=== PATIENT | male | born 1955 | race Caucasian/White ===

== ENCOUNTER 2022-06-18 17:00 | Inpatient (IN) | payer OTHER ==
[~2022-06-18] VITALS: Ht 180.3 cm; Wt 106.1 kg
[2022-06-18] MEDS ORDERED: IV NS 0.9% 1,000 ML BAG IV ONE (17:30)
--- NOTE | 2022-06-18 17:30 | NUR ---
PT BIBRA FROM HOME TO ER BD 06, PER EMS REPORT PT WAS ACTING NOT HIMSELF UPON WAKING UP FROM A NAP AND UNABLE TO STAND UP. UPON EMS ARRIVAL PATIENTS B/P WAS LOW AND HIS HEART RATE WAS ATRIAL FIBRILATION RATE 170'S PT GOWNED AND PLACED ON MONITOR, VERBALLY RESPONSIVE. AFIB IN THE 150'S. DR GLASS AT BEDSIDE FOR EVAL.
[2022-06-18 18:16] LABS: BASOPHILS % (AUTO) 0.1 % (0.0-2.0); HEMATOCRIT 42 % (39-51); LYMPHOCYTES # (AUTO) 0.2 K/uL (0.8-4.8); LYMPHOCYTES % (AUTO) 2.2 % (20.0-44.0); MEAN CORPUSCULAR HGB CONC 33 g/dl (31.0-36.0); MEAN CORPUSCULAR VOLUME 91 fL (80-96); MONOCYTES # (AUTO) 0.2 K/uL (0.1-1.30); MONOCYTES % (AUTO) 1.6 % (2.0-12.0); NEUTROPHILS # (AUTO) 9.5 K/uL (1.8-8.9); NEUTROPHILS % (AUTO) 96.1 % (43.0-81.0); PLATELET COUNT (AUTO) 100 K/uL (150-450); RED BLOOD CELL COUNT(AUTO) 4.67 MIL/uL (4.5-6.0); WHITE BLOOD COUNT (AUTO) 9.9 K/uL (4.3-11.0)
--- NOTE | 2022-06-18 18:23 | NUR ---
COVID SWAB TAKEN
[2022-06-18 18:29] LABS: CALCIUM, SERUM 8.5 mg/dL (8.5-10.1); CARBON DIOXIDE 23 mmol/L (21-32); CHLORIDE 102 mmol/L (98-107); CREATININE 2.5 mg/dL (0.6-1.3); GLUCOSE 104 mg/dL (74-106); POTASSIUM 3.9 mmol/L (3.5-5.1); SODIUM SERUM 139 mmol/L (136-145); UREA NITROGEN, BLOOD 28 mg/dL (7-18)
[2022-06-18] MEDS ORDERED: DILTIAZEM HCL 25 MG IV IVP ONE (18:30)
[2022-06-18] MEDS ORDERED: DILTIAZEM HCL IV 125 MG in IV D5W 100 ML IV ONE (18:30)
[2022-06-18] MEDS ORDERED: DILTIAZEM HCL 25 MG IV ONE (18:36)
--- NOTE | 2022-06-18 19:16 | NUR ---
HEART RATE 137, B/P 110/49. CARDIZEM DRIP TITRATED TO 10MG/HR WILL CONTINUE TO MONITOR.
--- NOTE | 2022-06-18 19:23 | NUR ---
PT FOUND HEART RATE 183,CARDIZEM DRIP TITRATED TO 15MG/HR WILL CONTINUE TO MONITOR.PT DENYING ANY CHEST PAIN AT THIS TIME.
[2022-06-18 19:53] LABS: BAND % (MANUAL) 15 % (0.0-5.0); LYMPHOCYTES % (MANUAL) 4 % (16-48); MONOCYTES % (MANUAL) 3 % (0-11.0); NEUTROPHILS % (MANUAL) 78 (42-76)
[2022-06-18] MEDS ORDERED: AMIODARONE 150 MG/3 ML VIAL IV ONE ×3 (20:00→20:16)
[2022-06-18] MEDS ORDERED: AMIODARONE 450 MG in IV D5W 241 ML IV PRN (20:00)
--- NOTE | 2022-06-18 20:07 | NUR ---
CALLED [facility] [place] AWAITING MD CALL BACK
--- NOTE | 2022-06-18 20:22 | NUR ---
zachary urrutia dc'ed per md barroso orders and switched to amiodarone
--- NOTE | 2022-06-18 20:30 | NUR ---
1 liter normal saline initiated at lh 20g per md barroso order for bp management. end time 2129.
[2022-06-18 20:31] LABS: MAGNESIUM 1.9 mg/dL (1.8-2.4)
--- NOTE | 2022-06-18 20:38 | NUR ---
amiodarone drip initiated at 1mg/min per protocol
[2022-06-18 20:42] LABS: PHOSPHORUS 0.4 mg/dL (2.5-4.9)
[2022-06-18] MEDS ORDERED: ENOXAPARIN SODIUM 60 MG/0.6 ML DISP.SYRIN SQ ONE ×2 (21:00→21:48)
[2022-06-18] MEDS ORDERED: MAGNESIUM HYDROXIDE 30 ML UDC PO PRN (21:30)
[2022-06-18] MEDS ORDERED: MAG HYDROX/AL HYDROX/SIMETH 30 ML UDC PO PRN (21:30)
[2022-06-18] MEDS ORDERED: IV NS 0.9% 1,000 ML IV PRN (21:30)
[2022-06-18] MEDS ORDERED: ONDANSETRON HCL/PF 4 MG/2 ML VIAL IVP PRN (21:30)
[2022-06-18] MEDS ORDERED: Z GUARD REMEDY 4 OZ OINT TP PRN (21:30)
[2022-06-18] MEDS ORDERED: ZOLPIDEM TARTRATE 5 MG TABLET PO PRN (21:30)
[2022-06-18] MEDS ORDERED: Magnesium 1GM/D5W 100ML PREMIX 200 ML IV ONE (21:41)
[2022-06-18] MEDS: Magnesium 1GM/D5W 100ML PREMIX 100 ML IV SCH ×2 (21:47→22:45)
[2022-06-18] MEDS ORDERED: ENOXAPARIN SODIUM 80 MG/0.8 ML DISP.SYRIN SQ ONE (21:50)
[2022-06-18] MEDS ORDERED: ACETAMINOPHEN 325 MG TABLET ONE (23:49)
[2022-06-18] MEDS: ACETAMINOPHEN 325 MG TABLET PO PRN (23:57)
--- NOTE | 2022-06-19 02:13 | NUR ---
report given to RR
--- NOTE | 2022-06-19 02:38 | NUR ---
amioadrone drip titrated to 0.5mg/min per protocol.
[2022-06-19] MEDS ORDERED: AMIODARONE 450 MG in IV D5W 241 ML IV PRN (03:00)
[2022-06-19] MEDS ORDERED: LISI40TA13 PO (03:01)
--- NOTE | 2022-06-19 03:01 | NUR ---
pt transported to room 255 on cardiac exercise physiologist per acls. amiodarone infusing at 0.5mg/min.
[2022-06-19 03:45] VITALS: BP 80/49
--- NOTE | 2022-06-19 03:50 | NUR ---
ICU ADMISSION NOTES Received patient from ER via [facility], accompanied by RN, ADELINA and his son. Alert and oriented x4. verbally responsive. On 02 3lpm via nasal cannula, saturating well. afebrile. IV access at Left hand and left AC, infusing at 75ml/h. tele monitor reads sinus rhythm at 80s. Initial and physical assessment done. skin is intact. Kept comfortable. Oriented to room set-up. safety measures initiated. Will continue to monitor.
[2022-06-19 04:00] VITALS: BP 90/49
[2022-06-19] MEDS ORDERED: IV NS 0.9% 1,000 ML IV ONE (04:00)
--- NOTE | 2022-06-19 04:20 | NUR ---
RN Notes - Patient's BP drops with reading of 89/49. Informed Dr. Olmstead. Received phone order. Given IV bolus of NS and increased current IV NS to 125ml/h. Tolerated proc well. Kept comfortable. Will continue to monitor.
[2022-06-19 04:30] VITALS: BP 104/53
[2022-06-19] MEDS: IV NS 0.9% 1,000 ML IV PRN ×2 (05:05→12:52)
[2022-06-19 05:26] LABS: BASOPHILS % (AUTO) 0.1 % (0.0-2.0); EOSINOPHILS % (AUTO) 0.1 % (0.0-6.0); HEMATOCRIT 36 % (39-51); HEMOGLOBIN 12.1 g/dL (13.5-17.5); LYMPHOCYTES # (AUTO) 0.6 K/uL (0.8-4.8); LYMPHOCYTES % (AUTO) 2.2 % (20.0-44.0); MEAN CORPUSCULAR HGB CONC 33 g/dl (31.0-36.0); MEAN CORPUSCULAR VOLUME 91 fL (80-96); MONOCYTES # (AUTO) 1.3 K/uL (0.1-1.30); MONOCYTES % (AUTO) 4.3 % (2.0-12.0); NEUTROPHILS # (AUTO) 27.4 K/uL (1.8-8.9); NEUTROPHILS % (AUTO) 93.3 % (43.0-81.0); PLATELET COUNT (AUTO) 92 K/uL (150-450); WHITE BLOOD COUNT (AUTO) 29.3 K/uL (4.3-11.0)
[2022-06-19 05:43] LABS: CALCIUM, SERUM 7.8 mg/dL (8.5-10.1); CREATININE 3.4 mg/dL (0.6-1.3); MAGNESIUM 2.4 mg/dL (1.8-2.4); PHOSPHORUS 2.2 mg/dL (2.5-4.9); POTASSIUM 3.9 mmol/L (3.5-5.1)
[2022-06-19 05:49] LABS: THYROID STIMULATING HORMONE 0.221 uIU/mL (0.358-3.74)
[2022-06-19] MEDS ORDERED: PANTOPRAZOLE 40 MG TABLET.DR PO SCH ×2 (07:30)
[2022-06-19] MEDS ORDERED: ENOXAPARIN SODIUM 30 MG/0.3 ML DISP.SYRIN SQ ONE (07:30)
[2022-06-19] MEDS ORDERED: NEUTRA PHOS 1 POWD.PACKET PO SCH (08:00)
[2022-06-19] MEDS ORDERED: HEPARIN INFUSION/D5W 500 ML IV PRN ×2 (08:00→18:00)
[2022-06-19] MEDS ORDERED: ASPIRIN 81 MG TAB.CHEW PO SCH (09:00)
--- NOTE | 2022-06-19 10:41 | NUR ---
RN NOTE INFORMED PATIENT THAT CASE MANAGEMENT, TOSHA IS INITIATING THE PROCESS TO TRANSFER PATIENT TO [place].
--- NOTE | 2022-06-19 10:46 | NUR ---
RN NOTE PER MARIA A, DR JONES ORDERED STAT PTT AT 1400 TO BEGIN HEPARIN DRIP AT 1800. PENDING TRANSFER TO [place] PER TOSHA CASE MANAGEMENT.
--- NOTE | 2022-06-19 11:43 | NUR ---
RN NOTE PER DR JONES, UPON DISCHARGE TO [place], IV PUSH 3,000 UNITS OF HEPARIN.
[2022-06-19] MEDS: ACETAMINOPHEN 325 MG TABLET PO PRN (14:22)
--- NOTE | 2022-06-19 14:33 | NUR ---
RN NOTE GAVE REPORT TO JAMES RUBY AT [facility]. NOTIFIED PATIENT'S SON AT BEDSIDE. CHARGE NURSE AWARE. WAITING FOR TRANSFER TIME FROM CASE MANAGEMENT.
--- NOTE | 2022-06-19 15:55 | NUR ---
ENVIRONMENTAL REMEDIATION CONSULTANT NOTES RECEIVED PATIENT FROM ICU ACCOMPANIED BY FAMILY MEMBER, ALERT AND VERBALLY RESPONSIVE, NO SOB NOTED, RESPIRATION EVEN AND UNLABORED, ON ROOM AIR SATING AT 100%. VS T 98.0 P 65 RR 22 BP 120/72 DENIES ANY PAIN. RIGHT HAND AND RIGHT AC PIV NOTED PATENT AND INTACT WITH NS RUNNING AT 125ML/HR. PATIENT ON TELE MONITORING WITH READING SR HR 67. CALL LIGHT WITHIN REACH. SAFETY PRECAUTION IN PLACED. PLAN OF CARE CONTINUE.
--- NOTE | 2022-06-19 16:48 | NUR ---
RECEIVED A CALL FROM KELLEY RAMIREZ FROM [facility] THAT PATIENT WILL BE UNDER PRESSER AT 1730H, TELE LEVEL OF CARE RM# [id number], REPORT # [phone] ACCEPTING DOCTOR Julia DE JESUS
--- NOTE | 2022-06-19 17:25 | NUR ---
CLARIFY ORDER TO DR. JONES, PER DR JONES, DO NOT GIVE THE HEPARIN INJECTION, LET VELASCO DECIDE WHAT TO DO, NOTED AND CARRIED OUT.
[2022-06-19] MEDS ORDERED: HEPARIN SODIUM,PORCINE/PF 50 UNIT/5 ML DISP.SYRIN IV ONE (17:30)
--- NOTE | 2022-06-19 17:50 | NUR ---
HR ANALYST NOTES DISCHARGE SUMMARY INSTRUCTIONS REVIEWED WITH THE PATIENT, FAMILY MEMBER AT THE BEDSIDE, ALL PERSONAL BELONGINGS AND HOME MEDICATIONS RELEASED TO THE PATIENT. DISCHARGE PAPERWORKS RELEASED TO THE PATIENT. PATIENT EXITED THE HOSPITAL VIA GURNEY.
[2022-06-19] MEDS ORDERED: ENOXAPARIN SODIUM 100 MG/ML DISP.SYRIN SQ SCH (21:00)
[2022-06-19 21:23] LABS: BAND % (MANUAL) 17 % (0.0-5.0); EOSINOPHILS % (MANUAL) 2 % (0-4); LYMPHOCYTES % (MANUAL) 5 % (16-48); NEUTROPHILS % (MANUAL) 76 (42-76)
== END 2022-06-19 18:44 | disposition short-term general hospital (02) | DRG 280 ==
LOC: ER 19:58 → ICU 06-19 02:09 → TELE1 06-19 16:10
PROVIDERS: ADMIT Student in an Organized Health Care Education/Training Program; ATTEND Nurse Practitioner Acute Care
DX: I48.91 Unspecified atrial fibrillation (principal); I21.4 Non-ST elevation (NSTEMI) myocardial infarction; N17.0 Acute kidney failure with tubular necrosis; D69.6 Thrombocytopenia, unspecified; E83.39 Other disorders of phosphorus metabolism; I10 Essential (primary) hypertension; Z79.82 Long term (current) use of aspirin; I95.9 Hypotension, unspecified; D72.829 Elevated white blood cell count, unspecified; E86.1 Hypovolemia; E05.90 Thyrotoxicosis, unspecified without thyrotoxic crisis or storm; Z20.822 Contact with and (suspected) exposure to COVID-19
CPT/HCPCS: 36415; 71045-TC; 76770-TC; 80048-TC; 83735-TC; 84100-TC; 84443-TC; 84484-TC; 85025-TC; 85730-TC; 87081-TC; 93307-TC; C9803; G0378; J0282; J1644; J1650; J3475; J3490; J7030; J7060